=== PATIENT | male | born 1940 ===

== ENCOUNTER 2019-03-25 06:05 | Day surgery (SDC) | payer OTHER | END 2019-03-25 11:32 | disposition home or self-care (01) | LOC: AMB-ENDOS 06:05 | DX: D13.1 Benign neoplasm of stomach (principal) ==

== ENCOUNTER 2020-11-22 07:16 | Day surgery (SDC) | payer OTHER | END 2020-11-22 11:30 | disposition home or self-care (01) | LOC: AMB-ENDOS 07:16 | PROVIDERS: ATTEND Surgery | DX: K29.50 Unspecified chronic gastritis without bleeding (principal); K62.7 Radiation proctitis; Z20.822 Contact with and (suspected) exposure to COVID-19 ==